=== PATIENT | male | born 1995 | race Two or more races ===

== ENCOUNTER 2019-09-23 17:46 | Emergency (ER) | payer OTHER ==
[~2019-09-23] VITALS: Ht 177.8 cm; Wt 77.1 kg
[2019-09-23 18:01] VITALS: BP 158/64
[2019-09-23] MEDS ORDERED: LIDOCAINE-MPF 1%, 5ML ONE (18:59)
[2019-09-23] MEDS ORDERED: LIDOCAINE 1%, 10ML INFIL ONE (19:00)
== END 2019-09-23 20:51 | disposition home or self-care (01) ==
LOC: ED 18:27
DX: S63.287A Dislocation of proximal interphalangeal joint of left little finger, initial encounter (principal); X58.XXXA Exposure to other specified factors, initial encounter; Y93.89 Activity, other specified; Y92.830 Public park as the place of occurrence of the external cause; Y99.8 Other external cause status
CPT/HCPCS: 26770; 99284